=== PATIENT | male | born 1965 | race Caucasian/White ===

== ENCOUNTER 2019-02-02 08:43 | Day surgery (SDC) | payer BC ==
[2019-01-31 11:19] VITALS: BMI 28.0
[~2019-02-02 08:43] MED LIST: LACTATED RINGERS 1,000 ML IV SCH
[2019-02-02 09:07] VITALS: TEMP 97.3
[2019-02-02] MEDS ORDERED: LIDOCAINE 1% 20 ML VIAL (10MG/ML) FOR IV START INTRADERMA ONE (09:13)
[2019-02-02] MEDS ORDERED: PROPOFOL 10 MG/ML 20 ML VIAL IV ONE (10:14)
[2019-02-02 10:44] VITALS: RESP 18
--- NOTE | 2019-02-02 10:47 | P.PCN ---
Date of Procedure: 02/02/19 Procedure(s) Performed: Procedure: Total colonoscopy. Preoperative diagnosis: Screening for neoplasia. Postoperative diagnosis: Diverticulosis with no evidence of acute diverticulitis, strictures, polyps or cancer. Preparation: HalfLytely prep. Sedation: Was provided by anesthesia. Brief clinical history: The patient is a 53-year-old male who is scheduled for this evaluation for screening for neoplasia age being his risk factor and because of family history of colon cancer in his paternal grandfather. The patient has no abdominal complaints, bleeding or anemia. His last exam was in 2012. Procedure: With the patient on his left lateral decubitus position and after informed consent and adequate sedation, the perianal area was inspected and it did not show any fissures or fistulas. There were no masses felt on digital rectal examination. The Olympus CFH 190L video colonoscope was then inserted in the rectum in the usual fashion and advanced to the cecum. There were multiple diverticular orifices seen scattered along the length of the bowel including the right side and around the hepatic flexure with no evidence of acute diverticulitis or strictures. The mucosa appeared healthy. No polyps or tumors were seen. I retroflexed the endoscope in the rectum before the endoscope was withdrawn. The patient tolerated the procedure well. Plan: The patient was reassured. Discussed dietary measures. He will follow up with you as planned and I recommended repeat exam in around 10 years.
[2019-02-02 11:01] VITALS: BP 115/76; PULSE 64
== END 2019-02-02 11:19 | disposition home or self-care (01) ==
LOC: ORWHC2ENDO 08:43
DX: Z12.11 Encounter for screening for malignant neoplasm of colon (principal); K57.30 Diverticulosis of large intestine without perforation or abscess without bleeding; M19.90 Unspecified osteoarthritis, unspecified site; Z80.0 Family history of malignant neoplasm of digestive organs; Z88.0 Allergy status to penicillin; E07.9 Disorder of thyroid, unspecified; Z79.890 Hormone replacement therapy
CPT/HCPCS: J2704; G0105; 45378

== ENCOUNTER → 2022-08-18 | Outpatient (CLI) | payer OTHER ==
--- NOTE | 2022-08-18 21:55 | MR ---
EXAMINATION TYPE: MR brain wo con DATE OF EXAM: 08/18/2022 COMPARISON: MRI brain June 14, 2016 and older studies. HISTORY: Benign neoplasm of pineal gland. TECHNIQUE: Multiplanar, multisequence imaging of the brain and brainstem is performed without IV cont rast. FINDINGS: Diffusion weighted images demonstrate no evidence of a recent infarct or other diffusion abnormality. There is no extraaxial fluid collection or significant white matter signal abnormality. The ventricu lar system and cisternal spaces remain stable and normal in size and appearance. The brain volume is age appropriate. Midline structures redemonstrate normal morphology. Stable 1.7 x 1.5 cm incidental pineal gland cyst axial image 16 from prior MRIs. The craniocervical junction appears within normal limits. Normal vasc ular flow voids are present. The visualized sinuses are clear and the globes are intact. 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
== END | disposition home or self-care (01) ==
LOC: RADMRIMAIN 18:11
PROVIDERS: ATTEND Family Medicine
DX: D35.4 Benign neoplasm of pineal gland (principal)
CPT/HCPCS: 70551

== ENCOUNTER → 2025-03-09 | Outpatient (CLI) | payer OTHER ==
--- NOTE | 2025-03-09 21:57 | MR ---
EXAMINATION TYPE: MR lumbar spine wo con DATE OF EXAM: 03/09/2025 9:33 PM COMPARISON: 06/18/2016. CLINICAL INDICATION: Male, 59 years old with history of M51.16 INTERVERTEBRAL DISC DIS; PHH, low back pain that radiates down both legs x1year TECHNIQUE: Multi planar, multi sequence imaging was performed utilizing: T1-weighted, T2-weighted, a nd turbo inversion recovery imaging of the lumbar spine. IV Contrast: mL (None, if empty) FINDINGS: Alignment: The lumbar vertebral bodies have preserved heights and alignment. Cord: The conus medullaris and the distal spinal cord appear unremarkable with regards to their signa l intensity and morphology. Bones/Discs: Multilevel disc degeneration changes with osteophyte formation. Modic endplate changes w orse at of L1-L2, L2-L3 and L4-L5 adjoining endplates. Scattered disc space narrowing, Schmorl's node s, and facet joint arthropathy. Multilevel disc desiccation is present. Reactive adjoining endplate edema at L1-L2 and L2-L3. T12-L1: No evidence of significant spinal canal stenosis or neural foraminal stenosis. L1-L2: No evidence of significant spinal canal stenosis. Facet joint arthropathy moderate to severe l eft and moderate right neural foraminal stenosis. L2-L3: No evidence of significant spinal canal stenosis. Facet joint arthropathy moderate to severe l eft and moderate right Neural foraminal stenosis. L3-L4: Disc bulge and facet joint arthropathy result in mild to moderate spinal canal and severe left and moderate right neural foraminal stenosis. L4-L5: Disc bulge and facet joint arthropathy result in mild spinal canal and severe right and modera te left neural foraminal stenosis. L5-S1: The disc has a rounded posterior morphology without significant spinal canal stenosis. Facet j oint arthropathy with mild bilateral neural foraminal stenosis. No significant spinal canal or neural foraminal stenosis in the remainder of the visualized levels. Other findings: None. IMPRESSION: Overall findings may be moderately progressed from prior in 2016. 1. No definitive evidence of disc herniation or significant spinal canal stenosis. 2. Moderate to severe disc degeneration with associated osteoarthritic changes. 3. Neural foraminal stenosis worse at L4-L5 with severe right and moderate left, L3-L4 with severe l eft and moderate right, L2-L3 with moderate to severe left and moderate right, and L1-L2 with moderat e severe left and moderate right [facility], , 03/09/2025 9:55 PM
== END | disposition home or self-care (01) ==
LOC: RADMRIMAIN 21:15
PROVIDERS: ATTEND Family Medicine
DX: M51.16 Intervertebral disc disorders with radiculopathy, lumbar region (principal); M99.73 Connective tissue and disc stenosis of intervertebral foramina of lumbar region
CPT/HCPCS: 72148